=== PATIENT | male | born 1975 | race Two or more races ===

== ENCOUNTER 2021-12-18 12:09 | Emergency (ER) | payer OTHER ==
[~2021-12-18] VITALS: Ht 172.7 cm; Wt 73.5 kg
[2021-12-18] MEDS ORDERED: CARDIZEM CD300 MG (12:21)
[2021-12-18] MEDS ORDERED: ACIPHEX20 MG (12:22)
[2021-12-18] MEDS ORDERED: TOPROL XL50 M1 (12:22)
== END 2021-12-18 13:22 | disposition home or self-care (01) ==
LOC: ER 12:09
DX: S61.452A Open bite of left hand, initial encounter (principal); S61.451A Open bite of right hand, initial encounter; W54.0XXA Bitten by dog, initial encounter; Y92.89 Other specified places as the place of occurrence of the external cause

== ENCOUNTER 2023-05-07 09:21 | Emergency (ER) | payer OTHER ==
[~2023-05-07] VITALS: Ht 172.7 cm; Wt 73.5 kg
[~2023-05-07 09:21] MED LIST: ACIPHEX20 MG; CARDIZEM CD300 MG; TOPROL XL50 M1
== END 2023-05-07 11:27 | disposition home or self-care (01) ==
LOC: ER 09:21
DX: J03.90 Acute tonsillitis, unspecified (principal)

== ENCOUNTER 2023-10-12 17:35 | Emergency (ER) | payer OTHER ==
[~2023-10-12] VITALS: Ht 172.7 cm; Wt 73.5 kg
[2023-10-12] MEDS ORDERED: VARSARTAN (17:43)
[2023-10-12] MEDS ORDERED: ACIPHEX SPRINKLE5 MG PO (17:44)
[2023-10-12 21:21] LABS: HEMATOCRIT 44.5 % (39.0-48.0); HEMOGLOBIN 15.7 g/dL (13-16.00); MEAN CELL VOLUME 85.7 fL (80.0-100.00); MEAN CORPUSCULAR HEMOGLOBIN 30.2 pg (27.00-32.0); MEAN CORPUSCULAR HGB CONC 35.2 g/dl (32.0-36.0); PLATELET COUNT 180 K/uL (150-450); RED CELL DISTRIBUTION WIDTH 13.1 % (11.5-14.5)
[2023-10-12 21:42] LABS: ALBUMIN 4.1 gm/dL (3.4-5.0); BILIRUBIN TOTAL 0.36 mg/dL (0.3-1.2); CALCIUM 9.2 mg/dL (8.5-10.1); GFR 79.42; GLOBULINA 3.6 G/DL (2.4-3.5); POTASSIUM 3.33 mEq/L (3.5-5.1); TOTAL PROTEIN 7.7 gm/dL (6.4-8.2)
[2023-10-12] MEDS ORDERED: MUCINEX DM ER1 EACH PO (22:34)
[2023-10-12] MEDS ORDERED: ZITHROMAX200 MG PO (22:34)
[2023-10-12] MEDS ORDERED: FLONASE16 GM NASAL (22:34)
[2023-10-12] MEDS ORDERED: ZYRTEC10 MG PO (22:34)
== END 2023-10-13 00:27 | disposition home or self-care (01) ==
LOC: ER 17:36
PROVIDERS: General Practice
DX: U07.1 COVID-19 (principal); J06.9 Acute upper respiratory infection, unspecified; R09.81 Nasal congestion; I10 Essential (primary) hypertension

== ENCOUNTER 2024-10-09 09:51 | Outpatient (CLI) | payer OTHER ==
[~2024-10-09 09:51] MED LIST changes: +ACIPHEX SPRINKLE5 MG PO; +FLONASE16 GM NASAL; +MUCINEX DM ER1 EACH PO; +VARSARTAN; +ZITHROMAX200 MG PO; +ZYRTEC10 MG PO
== END 2024-10-09 09:58 | disposition home or self-care (01) ==
LOC: NUCLEAR 09:51
DX: M81.0 Age-related osteoporosis without current pathological fracture (principal)